=== PATIENT | female | born 1930 | race African-American/Black ===

== ENCOUNTER 2017-08-27 14:37 | Emergency (ER) | payer OTHER, MEDICARE ==
[~2017-08-27] VITALS: Ht 167.6 cm; Wt 68.0 kg
[2017-08-27] MEDS ORDERED: CLINDAMYCIN HCL 150MG CAPSULE PO STA (17:23)
[2017-08-27] MEDS ORDERED: ACETAMINOPHEN 325MG TABLET PO ONE (17:30)
[2017-08-27 18:45] VITALS: BP 140/77
== END 2017-08-27 20:22 | disposition home or self-care (01) ==
LOC: ER 14:37
DX: L08.9 Local infection of the skin and subcutaneous tissue, unspecified (principal); I10 Essential (primary) hypertension; E78.00 Pure hypercholesterolemia, unspecified; F03.90 Unspecified dementia, unspecified severity, without behavioral disturbance, psychotic disturbance, mood disturbance, and anxiety; Z88.0 Allergy status to penicillin; Z88.5 Allergy status to narcotic agent
CPT/HCPCS: 73630; 82962; 99284